=== PATIENT | male | born 1955 | race Caucasian/White ===

== ENCOUNTER → 2017-06-25 | Outpatient (CLI) | payer MEDICARE, BC, OTHER ==
[~2017-06-25] MED LIST: ATOR80TA59 PO; BUPR150T3 PO; CETI10TA PO; CYCL10TA PO; FISH100049 PO; FLON1SPR; LEVO50TA5 PO; MAGN400T5 PO; NORT25CA2 PO; OMEP40CA2 PO; PERC5TAB12 PO; TAMS0.4C2 PO; TOPI100T9 PO; VITA-121 PO; VITA200038 PO; VITMTA PO; XARE20TA PO; ZOFR8TAB4 PO
== END ==
LOC: M SMT 14:50
PROVIDERS: ATTEND Urology
DX: Z85.46 Personal history of malignant neoplasm of prostate (principal)
CPT/HCPCS: 36415; 84153; G0463

== ENCOUNTER → 2019-03-11 | Outpatient (CLI) | payer MEDICARE, BC, OTHER ==
[~2019-03-11] MED LIST changes: +ZOFR8TAB22 PO; -ZOFR8TAB4 PO
--- NOTE | 2019-03-11 16:13 | REP ---
Scrotal sonography: History: Left testicular pain. Findings: High-resolution bilateral scrotal sonography is performed. No intratesticular mass lesion is seen on either side. Right testis measures 3.8 x 1.7 x 2.2 cm. Left testicular dimensions are 3.8 x 1.9 x 2.3 cm. Epididymi are unremarkable. Testicular Doppler flow is intact bilaterally. Resistive indices are 0.62 and 0.69 on the right and left respectively. Fluid reservoirs for the penile and bladder prosthetic devices are seen. Impression: No abnormal Doppler flow or focal testicular lesion seen on either side. Electronically Signed by Denis Lin MD 03/11/2019 08:19 P
== END ==
LOC: M RAD 14:16
PROVIDERS: ATTEND Urology
DX: N50.812 Left testicular pain (principal)

== ENCOUNTER → 2019-11-05 | Outpatient (REF) | payer MEDICARE, OTHER ==
[~2019-11-05] MED LIST changes: -OMEP40CA2 PO; +OMEP40CA97 PO
[2019-11-05 15:08] LABS: ALBUMIN 3.8 GM/DL (3.2-5.2); BLOOD UREA NITROGEN 15 MG/DL (7-18); CALCIUM LEVEL 9.1 MG/DL (8.8-10.2); CARBON DIOXIDE LEVEL 29 MEQ/L (21-32); CHLORIDE LEVEL 102 MEQ/L (98-107); CREATININE FOR GFR 1.27 MG/DL (0.70-1.30); GLOMERULAR FILTRATION RATE > 60.0 (>49); GLUCOSE, FASTING 85 MG/DL (70-100); PHOSPHORUS LEVEL 3.3 MG/DL (2.5-4.9); POTASSIUM SERUM 4.5 MEQ/L (3.5-5.1); SODIUM LEVEL 138 MEQ/L (136-145); URIC ACID 4.7 MG/DL (3.5-7.2)
== END ==
LOC: M LAB REF 14:11
PROVIDERS: ATTEND Internal Medicine Nephrology
DX: N17.9 Acute kidney failure, unspecified (principal); D64.9 Anemia, unspecified; N20.0 Calculus of kidney

== ENCOUNTER → 2021-01-19 | Outpatient (CLI) | payer MEDICARE, OTHER ==
[~2021-01-19] MED LIST changes: +ASPI81TA26 PO; +BUPR150T12 PO; -BUPR150T3 PO; +CYCL-707 PO; -CYCL10TA PO; +FAMO20TA PO; +HYDR-4514 PO; +LORA-674 PO; +PANT40TA29 PO; +POTA10808 PO; +PREG100C PO; +PREG100CA PO
== END ==
LOC: M LABSMTC 10:20
PROVIDERS: ATTEND Anesthesiology
DX: Z01.812 Encounter for preprocedural laboratory examination (principal); Z20.822 Contact with and (suspected) exposure to COVID-19

== ENCOUNTER 2021-01-24 06:18 | Day surgery (SDC) | payer MEDICARE, BC, OTHER ==
[~2021-01-24] VITALS: Ht 175.3 cm; Wt 98.4 kg
[~2021-01-24 06:18] MED LIST changes: +LR 1,000 ML IV ONE
[2021-01-24] MEDS ORDERED: GENTAMICIN 80 MG in IV 1 EA IV ONE (06:50)
[2021-01-24] MEDS ORDERED: PIPERACILLIN/TAZOBACTAM SOD 3.375 GM in D5W MINI-BAG PLUS 50 ML IV ONE (06:50)
[2021-01-24] MEDS ORDERED: fentaNYL 100 MCG/2 ML INJECTION (J3010) As Ordered ONE (07:13)
[2021-01-24] MEDS ORDERED: LIDOCAINE 2% 100MG/5ML SDV (FOR ANES.) As Ordered ONE (07:13)
[2021-01-24] MEDS ORDERED: dexameTHASONE 4 MG/ML 1ML VIAL (J1100 PER 1MG) As Ordered ONE (07:13)
[2021-01-24] MEDS ORDERED: ACETAMINOPHEN 1000MG 100ML IV BTL (OFIRMEV) (J0131 PER 10MG) As Ordered ONE (07:13)
[2021-01-24] MEDS ORDERED: ONDANSETRON 4MG/2ML VIAL As Ordered ONE (07:13)
[2021-01-24] MEDS ORDERED: KETOROLAC 60MG 2ML VIAL As Ordered ONE (07:13)
[2021-01-24] MEDS ORDERED: propofoL 200 MG/20 ML VIAL As Ordered ONE (07:13)
[2021-01-24] MEDS ORDERED: MIDAZOLAM INJ 2MG/2ML VIAL (J2250 PER 1MG) As Ordered ONE (07:13)
[2021-01-24] MEDS ORDERED: BACITRACIN OINTMENT 30GM TUBE As Ordered ONE (07:14)
[2021-01-24] MEDS ORDERED: BUPIVACAINE HCL 0.25% 30ML VIAL As Ordered ONE (07:14)
[2021-01-24] MEDS ORDERED: ONDANSETRON 4MG/2ML VIAL IV PRN (08:55)
[2021-01-24] MEDS ORDERED: fentaNYL 100 MCG/2 ML INJECTION (J3010) IV PRN (08:55)
[2021-01-24] MEDS ORDERED: MEPERIDINE INJ 25 MG/ML VIAL (J2175) IV PRN (08:55)
[2021-01-24] MEDS ORDERED: METOCLOPRAMIDE INJ 10MG/2ML VIAL (J2765 PER 1) IV PRN (08:55)
[2021-01-24] MEDS ORDERED: LR 1,000 ML IV SCH (08:55)
[2021-01-24] MEDS ORDERED: oxyCODONE 5MG TAB PO PRN (08:55)
[2021-01-24] MEDS ORDERED: NORCO, ANEXSIA 5/325MG TABLET (HYDROcodone/ACETAMINOPHEN) PO PRN (09:00)
[2021-01-24] MEDS ORDERED: BACT800T5 PO (09:16)
--- NOTE | 2021-01-24 09:21 | RO ---
OPERATIVE NOTE DATE OF OPERATION: 01/24/2021 PREOPERATIVE DIAGNOSIS: Retractile left testicle. POSTOPERATIVE DIAGNOSIS: Retractile left testicle. PROCEDURE: Left orchiopexy. SURGEON: Carlito Barry MD STRETCHING MACHINE OPERATOR: None. ANESTHESIA: General. OPERATIVE INDICATIONS: This is a 65-year-old male with retractile left testicle and a lot of discomfort when it happens. He is brought to the operating room today for treatment. DESCRIPTION OF PROCEDURE: The patient was brought to the operating room and general anesthesia was induced. Prophylactic antibiotics were infused. He was placed in the supine position, prepped and draped in usual sterile fashion. At this point approximately 4 cm transverse incision was made over the left hemiscrotum. I then dissected down through scrotal wall layers. The testicle was then delivered outside tunica vaginalis. 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 Because of this he has pumps and tubing inside of his scrotum and they could be palpated. I made sure during the dissection not to enter the space where the pumps and tubing were located. I did not see them at any point during the procedure. At this point after the testicle was delivered outside the left hemiscrotum I made a little pocket inside the left scrotum on either side where I could stitch the testicle to it. I utilized a 3-0 Vicryl suture to secure the testicle to the dartos muscle on both sides. On the medial side I made sure to stay away from the pump and tubing devices. Once these stitches were placed I then placed the testicle back inside the left hemiscrotum in normal anatomic position and the stitches were tied down. At this point I checked for hemostasis and hemostasis looked good. I then closed dartos muscle with running 2-0 Vicryl suture. Skin was then closed with interrupted 2-0 Vicryl suture. Dressings were applied and this marked the conclusion of the procedure. The patient was awakened from anesthesia and transported to the recovery room in stable condition. ESTIMATED BLOOD LOSS: 10 mL. COMPLICATIONS: None. SPECIMENS: None. PLAN: The patient will follow up in urology clinic in three weeks for postoperative visit. ZENOBIA
[2021-01-24 10:13] VITALS: BP 140/75
== END 2021-01-24 10:16 | disposition home or self-care (01) ==
LOC: M SDC 06:18
PROVIDERS: ATTEND Urology
DX: Q55.22 Retractile testis (principal); K21.9 Gastro-esophageal reflux disease without esophagitis; E03.9 Hypothyroidism, unspecified; E78.5 Hyperlipidemia, unspecified; Z86.73 Personal history of transient ischemic attack (TIA), and cerebral infarction without residual deficits; J44.9 Chronic obstructive pulmonary disease, unspecified; Z85.46 Personal history of malignant neoplasm of prostate; Z79.01 Long term (current) use of anticoagulants; Z79.82 Long term (current) use of aspirin; F41.9 Anxiety disorder, unspecified; F32.9 Major depressive disorder, single episode, unspecified; Z79.899 Other long term (current) drug therapy; Z92.3 Personal history of irradiation; Z88.8 Allergy status to other drugs, medicaments and biological substances
CPT/HCPCS: 54640; J0131; J1100; J1580; J2250; J2405; J2543; J3010

== ENCOUNTER → 2023-01-06 | Outpatient (CLI) | payer MEDICARE, BC, OTHER ==
[~2023-01-06] MED LIST changes: +BACT800T5 PO; -LR 1,000 ML IV ONE; +OMEP40CA4 PO; -OMEP40CA97 PO
== END ==
LOC: M PLAIMG 13:51
PROVIDERS: ATTEND Physician Assistant Surgical
DX: M16.12 Unilateral primary osteoarthritis, left hip (principal)

== ENCOUNTER → 2023-01-17 | Outpatient (REF) | payer MEDICARE, BC, OTHER | LOC: M SFHCDERM 17:05 | PROVIDERS: ATTEND Nurse Practitioner Family | DX: C44.519 Basal cell carcinoma of skin of other part of trunk (principal) | CPT/HCPCS: 11102; 88305; G0463 ==

== ENCOUNTER → 2023-02-03 | Outpatient (CLI) | payer MEDICARE, BC, OTHER ==
[~2023-02-03] MED LIST changes: +ISOVUE-300 61% 100ML VIAL ONE; +LIDOCAINE 1% MDV 20ML VIAL ONE; +methylPREDNISolone SUSP 40MG/ML 1ML VIAL (DEPO MEDROL) ONE
== END ==
LOC: M PLAIMG 14:33
PROVIDERS: ATTEND Physician Assistant Surgical
DX: M16.12 Unilateral primary osteoarthritis, left hip (principal)
CPT/HCPCS: 20610; 77002; J1030; Q9967

== ENCOUNTER 2023-02-17 07:31 | Day surgery (SDC) | payer MEDICARE, BC, OTHER ==
[~2023-02-17] VITALS: Ht 175.3 cm; Wt 96.6 kg
[~2023-02-17 07:31] MED LIST changes: +GABA-282 PO; +GABA600T4 PO; -ISOVUE-300 61% 100ML VIAL ONE; -LIDOCAINE 1% MDV 20ML VIAL ONE; +LIDOCAINE 2% 100MG/5ML SDV (FOR ANES.) As Ordered ONE; +NS 1,000 ML IV ONE; +VITA100093 PO; -methylPREDNISolone SUSP 40MG/ML 1ML VIAL (DEPO MEDROL) ONE; +propofoL 500 MG/50 ML VIAL As Ordered ONE
[2023-02-17] MEDS ORDERED: propofoL 500 MG/50 ML VIAL As Ordered ONE (09:16)
[2023-02-17 09:51] VITALS: BP 128/61
== END 2023-02-17 09:54 | disposition home or self-care (01) ==
LOC: M OPP 07:31
PROVIDERS: ATTEND Internal Medicine Gastroenterology
DX: D12.6 Benign neoplasm of colon, unspecified (principal); K64.4 Residual hemorrhoidal skin tags; K64.8 Other hemorrhoids; K57.30 Diverticulosis of large intestine without perforation or abscess without bleeding; K57.32 Diverticulitis of large intestine without perforation or abscess without bleeding; Z79.1 Long term (current) use of non-steroidal anti-inflammatories (NSAID); Z79.51 Long term (current) use of inhaled steroids; Z79.52 Long term (current) use of systemic steroids; Z79.890 Hormone replacement therapy; Z79.891 Long term (current) use of opiate analgesic; Z79.899 Other long term (current) drug therapy; Z88.5 Allergy status to narcotic agent; Z88.6 Allergy status to analgesic agent

== ENCOUNTER → 2023-04-09 | Outpatient (REF) | payer MEDICARE, OTHER, BC ==
[~2023-04-09] MED LIST changes: -LIDOCAINE 2% 100MG/5ML SDV (FOR ANES.) As Ordered ONE; -NS 1,000 ML IV ONE; -propofoL 500 MG/50 ML VIAL As Ordered ONE
== END ==
LOC: M SFHCDERM 16:44
PROVIDERS: ATTEND Dermatology
DX: Z51.89 Encounter for other specified aftercare (principal)

== ENCOUNTER → 2023-04-30 | Outpatient (REF) | payer MEDICARE, OTHER | LOC: M SFHCDERM 17:31 | PROVIDERS: ATTEND Dermatology | DX: Z51.89 Encounter for other specified aftercare (principal) ==

== ENCOUNTER → 2023-05-08 | Outpatient (REF) | payer MEDICARE, OTHER | LOC: M SFHCDERM 17:49 | PROVIDERS: ATTEND Dermatology | DX: Z51.89 Encounter for other specified aftercare (principal) ==

== ENCOUNTER → 2023-08-07 | Outpatient (REF) | payer MEDICARE, OTHER ==
[~2023-08-07] MED LIST changes: +LORA-1041 PO; -LORA-674 PO; -PREG100C PO; +PREG100C2 PO
[2023-08-07 18:23] LABS: PHOSPHORUS LEVEL 3.6 MG/DL (2.4-5.1)
[2023-08-07 18:25] LABS: FOLATE 9.7 NG/ML (>5.4); TOTAL 25(OH) VITAMIN D 52.7 NG/ML (20.0-100.0)
== END ==
LOC: M SFHCRHEU 15:21
PROVIDERS: ATTEND Internal Medicine
DX: R53.83 Other fatigue (principal); Z79.899 Other long term (current) drug therapy

== ENCOUNTER → 2024-11-10 | Outpatient (REF) ==
[~2024-11-10] MED LIST changes: +GABA-1172 PO; +GABA-1490 PO; -GABA-282 PO; -GABA600T4 PO; -POTA10808 PO; +POTA10809 PO
== END ==
LOC: M SLEEP HO 10:00
PROVIDERS: ATTEND Physician Assistant
DX: R06.89 Other abnormalities of breathing (principal)

== ENCOUNTER → 2024-11-19 | Outpatient (CLI) | payer MEDICARE, BC ==
[~2024-11-19] MED LIST changes: +E-Z-GAS II EFFERVESCENT PACKET (SODIUM BICARB./CITRIC ACID/SIMETHICONE) As Ordered ONE; +E-Z-HD 98% w/w 340GM SUSP BTL As Ordered ONE; +E-Z-PAQUE 96% w/w SUSP 176GM BTL As Ordered ONE
== END ==
LOC: M RAD 08:26
PROVIDERS: ATTEND Internal Medicine Gastroenterology
DX: K21.9 Gastro-esophageal reflux disease without esophagitis (principal); K22.89 Other specified disease of esophagus

== ENCOUNTER 2024-12-14 11:59 | Day surgery (SDC) | payer MEDICARE, BC ==
[~2024-12-14] VITALS: Ht 175.3 cm; Wt 96.2 kg
[~2024-12-14 11:59] MED LIST changes: +CALC1CAP31 PO; -E-Z-GAS II EFFERVESCENT PACKET (SODIUM BICARB./CITRIC ACID/SIMETHICONE) As Ordered ONE; -E-Z-HD 98% w/w 340GM SUSP BTL As Ordered ONE; -E-Z-PAQUE 96% w/w SUSP 176GM BTL As Ordered ONE; +GLYCOPYRROLATE INJ 0.2 MG/ML 2 ML VIAL As Ordered ONE; +LEVOTAB10 PO; +LIDOCAINE 2% 100MG/5ML SDV (FOR ANES.) As Ordered ONE; +MONT10TA97 PO; +OXYB10TA23 PO; +POTA-226 PO; +TREL1AER; +VONO10TA PO; +fentaNYL 100 MCG/2 ML INJECTION As Ordered ONE; +propofoL 200 MG/20 ML VIAL As Ordered ONE
[2024-12-14 14:22] VITALS: TEMP 98.1
[2024-12-14 14:44] VITALS: BP 132/87; O2SAT 97
== END 2024-12-14 14:50 | disposition home or self-care (01) ==
LOC: M OPP 11:59
PROVIDERS: ATTEND Internal Medicine Gastroenterology
DX: K44.9 Diaphragmatic hernia without obstruction or gangrene (principal); K29.60 Other gastritis without bleeding; K21.9 Gastro-esophageal reflux disease without esophagitis; K22.89 Other specified disease of esophagus; R12 Heartburn; Z79.01 Long term (current) use of anticoagulants; Z86.73 Personal history of transient ischemic attack (TIA), and cerebral infarction without residual deficits; Z88.8 Allergy status to other drugs, medicaments and biological substances; Z79.891 Long term (current) use of opiate analgesic; Z79.51 Long term (current) use of inhaled steroids; Z79.899 Other long term (current) drug therapy; Z86.718 Personal history of other venous thrombosis and embolism; J44.9 Chronic obstructive pulmonary disease, unspecified
CPT/HCPCS: 43239; 88305; J1596; J3010

== ENCOUNTER 2025-06-06 11:02 | Day surgery (SDC) | payer MEDICARE, BC ==
[~2025-06-06] VITALS: Ht 175.3 cm; Wt 95.8 kg
[~2025-06-06 11:02] MED LIST changes: +FREM225A SQ; -GLYCOPYRROLATE INJ 0.2 MG/ML 2 ML VIAL As Ordered ONE; -LIDOCAINE 2% 100MG/5ML SDV (FOR ANES.) As Ordered ONE; +LOSA25TA13 PO; +PREG-35 PO; -PREG100CA PO; +TOPI-257 PO; -TOPI100T9 PO; -TREL1AER; +TREL1AER INH; -fentaNYL 100 MCG/2 ML INJECTION As Ordered ONE; -propofoL 200 MG/20 ML VIAL As Ordered ONE
[2025-06-06] MEDS ORDERED: LR 1,000 ML IV SCH ×2 (11:10→13:45)
[2025-06-06] MEDS ORDERED: ROCURONIUM BROMIDE 50MG/5ML VIAL As Ordered ONE (11:20)
[2025-06-06] MEDS ORDERED: SUGAMMADEX SODIUM 500 MG/5 ML VIAL As Ordered ONE (11:20)
[2025-06-06] MEDS ORDERED: ONDANSETRON 4MG 2ML VIAL As Ordered ONE (11:20)
[2025-06-06] MEDS ORDERED: dexAMETHasone 4 MG/ML 1 ML VIAL As Ordered ONE (11:20)
[2025-06-06] MEDS ORDERED: LIDOCAINE 2% 100 MG/5 ML SDV (FOR ANES.) As Ordered ONE (11:20)
[2025-06-06] MEDS ORDERED: MIDAZOLAM INJ 2 MG/2 ML VIAL As Ordered ONE (11:26)
[2025-06-06] MEDS ORDERED: LIDOCAINE W/EPINEPHrine 1% 20 ML VIAL As Ordered ONE (12:08)
[2025-06-06] MEDS ORDERED: ACETAMINOPHEN 1000MG/100ML IV BAG As Ordered ONE (12:56)
[2025-06-06] MEDS: OXYMETAZOLINE 0.05% NASAL SPRAY As Ordered ONE (13:07)
[2025-06-06] MEDS: METHYLENE BLUE 0.5% (5 MG/ML) 10 ML AMP As Ordered ONE (13:08)
[2025-06-06] MEDS ORDERED: HYDROMORPHONE HCL 0.5 MG/0.5 ML SYRINGE IV PRN (13:45)
[2025-06-06 15:30] VITALS: BP 130/75; TEMP 97.7; O2SAT 94
== END 2025-06-06 15:33 | disposition home or self-care (01) ==
LOC: M SDC 11:02
PROVIDERS: ATTEND Otolaryngology
DX: J38.3 Other diseases of vocal cords (principal); K14.8 Other diseases of tongue; R05.3 Chronic cough; F45.8 Other somatoform disorders; E03.9 Hypothyroidism, unspecified; E78.00 Pure hypercholesterolemia, unspecified; K21.9 Gastro-esophageal reflux disease without esophagitis; G62.9 Polyneuropathy, unspecified; I69.311 Memory deficit following cerebral infarction; I69.354 Hemiplegia and hemiparesis following cerebral infarction affecting left non-dominant side; I69.351 Hemiplegia and hemiparesis following cerebral infarction affecting right dominant side; Z79.899 Other long term (current) drug therapy; Z79.890 Hormone replacement therapy; G43.909 Migraine, unspecified, not intractable, without status migrainosus; Z86.718 Personal history of other venous thrombosis and embolism; Z88.8 Allergy status to other drugs, medicaments and biological substances; Z87.891 Personal history of nicotine dependence
CPT/HCPCS: 31536; 88305; J0131; J1100; J2250; J2405; J3010; Q9968

== ENCOUNTER 2025-08-25 12:34 | Outpatient (RCR) | payer MEDICARE, BC | END 2025-08-26 | LOC: M ST 12:34 | PROVIDERS: ATTEND Otolaryngology | DX: R49.0 Dysphonia (principal) ==